=== PATIENT | male | born 1955 | race Caucasian/White ===

== ENCOUNTER 2021-05-30 05:34 | Observation (INO) ==
--- NOTE | 2021-05-07 12:02 | PAT Medication Instructions ---
Medication Instructions Date of Service May 07, 2021 Home Medications ascorbic acid (vitamin C) 500 mg tablet (Vitamin C) 500 mg PO HS aspirin 81 mg tablet,delayed release 81 mg PO HS benazepril 20 mg-hydrochlorothiazide 25 mg tablet 1 tab PO HS cholecalciferol (vitamin D3) 25 mcg (1,000 unit) tablet (Vitamin D3) 1,000 unit PO HS sertraline 50 mg tablet 50 mg PO HS amlodipine 5 mg tablet 10 mg PO HS atorvastatin 20 mg tablet 20 mg PO HS lorazepam 0.5 mg tablet 0.5 mg PO DAILY PRN metformin 500 mg tablet 500 mg PO HS esomeprazole magnesium 20 mg capsule,delayed release (Nexium) 20 mg PO HS potassium chloride 10 mEq capsule,extended release 20 meq PO HS ASK your prescriber and surgeon aspirin 81 mg tablet,delayed release 81 mg PO HS Take morning of surgery With a small sip of water, OTHERWISE NOTHING TO EAT OR DRINK AFTER MIDNIGHT: lorazepam 0.5 mg tablet 0.5 mg PO DAILY PRN(if needed) Take evening before surgery ascorbic acid (vitamin C) 500 mg tablet (Vitamin C) 500 mg PO HS benazepril 20 mg-hydrochlorothiazide 25 mg tablet 1 tab PO HS cholecalciferol (vitamin D3) 25 mcg (1,000 unit) tablet (Vitamin D3) 1,000 unit PO HS sertraline 50 mg tablet 50 mg PO HS amlodipine 5 mg tablet 10 mg PO HS atorvastatin 20 mg tablet 20 mg PO HS metformin 500 mg tablet 500 mg PO HS esomeprazole magnesium 20 mg capsule,delayed release (Nexium) 20 mg PO HS potassium chloride 10 mEq capsule,extended release 20 meq PO HS Other Notes If you have any questions please call us at [phone] or [phone] or [phone] or [phone]
--- NOTE | 2021-05-23 14:27 | Anesthesiology Consultation ---
Date of Service May 23, 2021 Assessment & Plan (1) Encounter for pre-operative examination: Chart Review Chart Review: Acceptable Risk for Surgery (pending preop Covid testing and BSG DOS ) and Patient seen in Pre Admission Testing -Discussed glucose with Dr. Maya- due to nature of procedure- patient can proceed as scheduled- most likely will need insulin while admitted. - Check BSG AM DOS Per PAT appt on 05/23/21, patient denies any recent travel or large group activities. No known Covid positive exposures or Covid related symptoms. No known Covid infection in the past 90 days. Pt is fully vaccinated for Covid. Pre op Covid testing scheduled 05/28/21 = will await results. Educated on importance of self quarantining, social distancing and wearing mask in public for the patient one week prior to surgery and after Covid testing done Pt last seen by cardio 04/16/21= history of chest pain- resolved. Nuclear stress test 12/2020 WNL. Able to achieve 4 mets without any difficulty. HTN- controlled. Dyslipidemia- hx of DM- Lipitor increased. Did order Holtor monitor to assess PVC burden (PVCs noted on EKG in office). Follow up in one year. Teaching & Discussion Pre-Anesthesia Teaching/Discussion Notes: Instructed NPO after midnight before surgery,except medications with 15 cc of water. Medication instructions provided according to the PAT guidelines. History Surgery Operation Date: 05/30/21 07:30 Proposed Procedures p Laparoscopic Robotic Assisted Radical Retropubic Prostatectomy, Possible Open, Possible Pelvic Lymph Node Dissection, Possible Suprapubic Tube Placement - Waldemar Garcia MD Height/Weight Height: 6 ft 6 in Weight: 119.5 kg Allergies Allergy/AdvReac Type Severity Reaction Status Date / Time morphine Allergy Mild severe Verified 05/17/21 10:26 vomiting Medications Home Medications Medication Instructions Recorded Confirmed Last Taken ascorbic acid (vitamin C) 500 mg 500 mg PO HS 10/25/19 05/17/21 11/01/19 tablet (Vitamin C) aspirin 81 mg tablet,delayed 81 mg PO HS 10/25/19 05/17/21 11/01/19 release benazepril 20 1 tab PO HS 10/25/19 05/17/21 11/01/19 mg-hydrochlorothiazide 25 mg tablet cholecalciferol (vitamin D3) 25 1,000 unit PO HS 10/25/19 05/17/21 11/01/19 mcg (1,000 unit) tablet (Vitamin D3) sertraline 50 mg tablet 50 mg PO HS 10/25/19 05/17/21 Unknown amlodipine 5 mg tablet 10 mg PO HS tab 02/14/21 05/17/21 Unknown atorvastatin 20 mg tablet 20 mg PO HS 02/14/21 05/17/21 Unknown lorazepam 0.5 mg tablet 0.5 mg PO DAILY PRN 02/14/21 05/17/21 Unknown metformin 500 mg tablet 500 mg PO HS 02/14/21 05/17/21 Unknown esomeprazole magnesium 20 mg 20 mg PO HS 04/10/21 05/17/21 Unknown capsule,delayed release (Nexium) potassium chloride 10 mEq 20 meq PO HS cap 04/18/21 05/17/21 Unknown capsule,extended release Past Medical History Medical History (Updated 05/24/21 @ 14:28 by Iraida Ahmadi PA-C) Cardiomyopathy Follows with Dr. Simpson in [place] Carotid stenosis <50% stenosis bilaterally per 04/2021 cardio note (cardio doppler from 04/2021 not available) Chronic gastritis controlled with Nexium CKD (chronic kidney disease) Depression Diabetes Recently dx'ed - does not check BSGs Hgb A1C 9.8 (due to prostate cancer - surgeon wants to proceed with case)- FYI note sent to PCP to follow up with patient Dyslipidemia GERD (gastroesophageal reflux disease) Well controlled and stable History of COVID-28 December 2020 > sinus issues > not hospitalized - no current symptoms History of visual impairment Right eye d/t optic neuropathy Hypertension Prostate cancer Exercise / Class Metabolic Activity II 4-5 Yardwork/Stairs/Walk up hill (one flight of stairs - no chest pain or SOB ) Past Family History Family History Grandfather (Paternal) , Passed in late 60's of Leukemia No problems noted. Father , Passed age 42 of cardiac/colon cancer No problems noted. Mother , Passed age 94 of natural causes No problems noted. Brother Breast cancer Mastectomy Sister No problems noted. Sister Breast cancer Son No problems noted. Son No problems noted. Other No family history of adverse response to anesthesia Past Surgical History Surgical History History of arthroscopy of left knee meniscus repair x2 History of arthroscopy of right knee meniscus repair History of bilateral cataract extraction History of cardiac cath 2004? @ [place], no stents History of carpal tunnel surgery of right wrist History of cholecystectomy History of colonoscopy with polypectomy History of esophagogastroduodenoscopy (EGD) History of lumbar surgery denervation of lower back History of Shana fundoplication History of repair of left rotator cuff History of toe surgery right big toe--no hardware History of tonsillectomy History of tooth extraction partial upper denture History of wisdom tooth extraction Past Anesthesia History No Hx of Anesthesia Complications (with exception to colonoscopy - had awareness ) and No Family Hx of Anesthesia Complications History of PONV No Hx of PONV and No Hx of Motion Sickness Social History Smoking Status: Never smoker Do You Dip or Chew Tobacco: No Hx Alcohol Use: Yes Alcohol type: beer alcohol intake frequency: holidays/special occasions only Hx Substance Use: No substance use type: does not use Review of Systems Hx of snoring- witnessed apnea in the past - no hx of sleep study Patient denies chest pain, shortness of breath, dyspnea on exertion, cough, wheezing, palpitations. No hx of seizures, stroke, MO. No hx of blood clots or blood transfusions Physical Exam Vital Signs VITALS BP 119/77 P 72 TEMP 97.7 SP02 95% RESP 16 Constitutional no acute distress ENMT Mouth: no TMJ clicking Thyromental Distance: < 3.5 Finger Breadths (3.0) Mallampati Class: I Top partial plate Missing bottom molars Neck neck extension not limited Respiratory normal respiratory effort; no respiratory distress Auscultation: lungs clear to auscultation bilaterally; no wheezes Cardiovascular Rate/Rhythm: regular rate and regular rhythm Heart Sounds: no murmur Vessels: no carotid bruit Musculoskeletal Spine: no pain with cervical ROM Extremities: extremities normal to inspection Psychiatric Orientation: alert Lab Results Anesthesia Preop Results Results Anesthesia Widget: WBC 6.30 K/uL (4.8-10.8) 05/23/21 Hgb 14.8 g/dL (14.0-18.0) 05/23/21 Hct 43.5 % (42-52) 05/23/21 Plt 229 K/uL (130-400) 05/23/21 Na 138 mmol/L (136-145) 05/23/21 K 3.8 mmol/L (3.5-5.1) 05/23/21 Cl 103 mmol/L (98-107) 05/23/21 CO2 29 mmol/L (21-32) 05/23/21 BUN 13 mg/dl (6-23) 05/23/21 Creat 1.10 mg/dl (0.6-1.4) 05/23/21 Glucose Level 307 mg/dl (70-99) H* 05/23/21 HA1c 9.8 % (4.5-5.6) H 05/23/21 Urine Color Yellow 05/23/21 Urine Appearance Clear (Clear) 05/23/21 Urine pH 5.0 (4.5-7.5) 05/23/21 Urine Specific [place] 1.022 (1.000-1.030) 05/23/21 Urine Protein Negative (Negative) 05/23/21 Urine Glucose (UA) 3+ (Negative) H 05/23/21 Urine Ketones Negative (Negative) 05/23/21 Urine Blood Negative (Negative) 05/23/21 Urine Nitrite Negative (Negative) 05/23/21 Urine Bilirubin Negative (Negative) 05/23/21 Urine Urobilinogen Negative (Negative) 05/23/21 Urine Leukocyte Esterase Negative (Negative) 05/23/21 Blood Type O Positive 05/23/21 Antibody Screen NEGATIVE 05/23/21 Lab Comments: Surgeon's office made aware of glucose- Dr. Garcia would still like to proceed (FYI note sent to PCP recommending follow up post op with patient for additional meds and blood testing supplies) Testing Electrocardiogram Date: 05/23/21 SR with marked sinus arrhythmia at 61bpm RBBB Chest X-Ray Date: 12/16/20 Findings: + NAD Likely focal enlargement of the left atrium. Echocardiogram Date: 04/16/21 EF: 55-60% LV Function: normal Other Findings: + LVH (borderline ) and + diastolic dysfunction (Grade I ) LA mildly enlarged Mild AR. Mild TR. Mild MO. The ascending aorta is dilated at 4cm. Stress Test Date: 01/09/21 Type: nuclear EKG response negative. The SPECT perfusion images are considered to be within normal limits. No significant ischemia or infarction noted. Normal LV wall motion. Relatively low probability of CAD, ischemia. Low risk study. Other Testing Holter monitor 04/24/2021 to 04/25/21 = normal Holter recording, 5377 PVCs. Primary rhythm was sinus rhythm, average heart rate was 76 bpm. Minimum HR was 51 bpm and maximum HR was 97 bpm. No atrial fibrillation or flutter noted. No SVT noted. No pauses or AV blocks. PVC burden was 4.88%.
[2021-05-30] MEDS ORDERED: LR 15ML/HR IV SCH (06:00)
[2021-05-30] MEDS ORDERED: ceFAZolin 2000MG 2,000 MG/15 ML SYR IV SCH (06:00)
--- NOTE | 2021-05-30 06:45 | History & Physical Bridge Note ---
Date of Service May 30, 2021 History & Physical Bridge Note I have examined the patient, reviewed the History & Physical and in the interval since the performance of the History & Physical I have noted the following changes of clinical significance: no changes noted
[2021-05-30] MEDS ORDERED: BUPIVACAINE 0.5 % 5 MG/1 ML MPF 30ML VIAL ONE (07:01)
[2021-05-30] MEDS ORDERED: LIDOCAINE 2% 2 ML VIAL/AMP(20MG/ML) INFIL ONE (07:07)
[2021-05-30] MEDS ORDERED: DEXAMETHASONE SOD INJ 4 MG/ML VIAL ONE (07:07)
[2021-05-30] MEDS ORDERED: GLYCOPYRROLATE 0.2 MG/ML VIAL ONE ×2 (07:07→08:18)
[2021-05-30] MEDS ORDERED: ONDANSETRON INJ 2 MG/ML 2 ML VIAL ONE ×2 (07:07→07:08)
[2021-05-30] MEDS ORDERED: PROPOFOL IV EMULSION 10 MG/ML 20 ML VIAL IV ONE (07:07)
[2021-05-30] MEDS ORDERED: NEOSTIGMINE METHYLSULFATE 1 MG/ML 10ML VIAL ONE (07:07)
[2021-05-30] MEDS ORDERED: MIDAZOLAM HCL 1 MG/ML 2ML VIAL ONE (07:08)
[2021-05-30] MEDS ORDERED: fentaNYL citrate 100 MCG/2 ML VIAL ONE (07:08)
[2021-05-30] MEDS ORDERED: LARYING-O-JET KIT (LTA) ONE (07:12)
[2021-05-30] MEDS ORDERED: ROCURONIUM BROMIDE 10 MG/ML 5 ML VIAL IV ONE ×2 (07:12→10:26)
[2021-05-30] MEDS ORDERED: ATROPINE SULFATE 0.1 MG/ML 10ML SYR IV PRN (07:18)
[2021-05-30] MEDS ORDERED: ONDANSETRON INJ 2 MG/ML 2 ML VIAL IV PRN ×2 (07:18→14:54)
[2021-05-30] MEDS ORDERED: KETOROLAC 30 MG/ML VIAL IV PRN (07:18)
[2021-05-30] MEDS ORDERED: PROMETHAZINE HCL 12.5 MG in SODIUM CHLORIDE 0.9% 50 ML IV PRN (07:18)
[2021-05-30] MEDS ORDERED: HYDROmorphone INJ 1 MG/ML SYRINGE IV PRN (07:18)
[2021-05-30] MEDS ORDERED: BELLADONNA/OPIUM SUPP 60 MG SUPP PR ONE ×2 (08:00→09:02)
[2021-05-30] MEDS ORDERED: ePHEDrine sulfate 50 MG/ML SYR ONE (08:18)
[2021-05-30] MEDS ORDERED: HYDROmorphone INJ 2 MG/ML SYR/VIAL ONE (09:52)
--- NOTE | 2021-05-30 14:10 | Operative Report ---
PG Post Operative Report Pre & Post Diagnosis Operation Date: 05/30/21 07:30 Pre-Op Diagnosis: Prostate Cancer Post-Op Diagnosis: Prostate Cancer I identified the patient and participated in the time-out.: Yes Procedure Operation Date: 05/30/21 07:30 Actual Procedures p Laparoscopic Robotic Assisted Radical Retropubic Prostatectomy, Bilateral Pelvic Lymph Node Dissection(Not Applicable) - Waldemar Garcia MD Surgeon Waldemar Garcia MD Fabricator Artificial Breast LINDSEY Mao-P Estimated Blood Loss 350 Findings Consistent with Post-Op Diagnosis Specimens Fat over prostate Prostate, vas deferens and seminal vesicals Left pelvic lymph nodes Right pelvic lymph nodes Drains Munoz catheter per urethra, 10 mL in balloon. Anesthesia Type General Complications none Disposition Accompanied Patient To Recovery: No Disposition: Recovery Room Indications This is a 65 yo male recently diagnosed with prostate cancer. After thorough discussion of treatment options and risks and benefits of surgery, he presents to the OR today for robot-assisted radical prostatectomy. Patient specific considerations include [place] 3+4 disease on the right side, with possible ductal variant. We will plan for non-nerve sparing on the right side. Description of Procedure The patient was identified in the preoperative holding area and informed consent was confirmed. He was then brought to the operating room where general anesthesia was initiated. He was placed supine on the operating room table with all pressure points appropriately padded. His abdomen and genitalia were prepped and draped in the usual sterile fashion and a timeout was performed. A 2 cm incision was made above the umbilicus and then a Veress needle was used to obtain access to the abdomen. Proper position was confirmed with the drop test and low initial insufflation pressure. The abdomen was insufflated with CO2 to a pressure of 12 mmHg. An 8 mm robotic port was placed in the incision and the robotic camera was inserted. The abdominal cavity was surveyed, demonstrating bilateral fat-containing inguinal hernias. There were some sigmoid adhesions as well. The remaining robotic ports were placed under direct visualization, with 2 8mm robotic ports on the left side and 1 robotic port on the right. A 12 mm dietary assistant port was placed on the right side as well, and a 5 mm dietary assistant port was placed in the right upper quadrant. The table was adjusted to 26 degrees of Trendelenberg. The robot was then docked. Sigmoid adhesions were sharply divided to allow access to the pelvis. Using electrocautery, the bladder was then dropped from the anterior wall of the abdomen, exposing the space of Retzius. This dissection was carried down to expose the pelvic brim and subsequently the anterior surface of the prostate and the endopelvic fascia. The fat overlying the anterior of the prostate was removed and sent for pathologic analysis, labeled as 'fat over prostate'. The endopelvic fascia was then divided on each side to expose the lateral aspects of the prostate and the lateral aspects of the pedicles. A 3-0 V-Loc suture was used to ligate the dorsal venous complex to prevent backbleeding in subsequent steps. The fourth arm of the robot was then used to put some gentle traction on the bladder, and the bladder neck was identified. Using electrocautery, the anterior bladder neck was dissected to expose the Munoz catheter, whose tip was removed from the bladder and held anteriorly. The posterior bladder neck dissection was then completed. At this point bilateral vas deferens were exposed and isolated. The vas deferens were cauterized and then divided. Bilateral seminal vesicles were dissected out as well. Denonvilliers fascia was then divided and the posterior prostate dissection was carried up as far as possible toward the urethra. The pedicles were then divided using combination of clips and sharp dissection, trying to use minimal electrocautery. On the right side a non-nerve sparing approach was used. On the left side nerve sparing approach was used. Attention was turned anteriorly and the dorsal venous complex was divided using sharp dissection and electrocautery. The urethra was isolated and then divided sharply. At this point, the prostate was free and was placed in a specimen bag. Bilateral pelvic lymph node dissection was then performed, and the radha tissue was sent for pathologic analysis, separately labeled as left and right pelvic lymph nodes. The pelvis was inspected and meticulous hemostasis was ensured using point cautery and [id number] 4-0 monocryl sutures. Double-armed V-Loc suture was then used to re-anastomose the bladder neck with the urethra. Once this was c omplete, the anastomosis was tested by instilling 120 mL of normal saline into the bladder. Satisfied that the anastomosis was watertight, the catheter balloon was inflated with 10 mL of normal saline. The robot was then undocked. The supraumbilical incision was extended and the prostate was extracted. 0 Vicryl suture was then used to close the fascia at this incision. All skin incisions were closed with 4-0 Monocryl suture and then a layer of Dermabond was applied. The patient was then awakened from anesthesia and was brought to the PACU in stable condition. I attest to the content of the Intraoperative Record and any orders documented therein. Any exceptions are noted below.
[2021-05-30] MEDS ORDERED: PROMETHAZINE HCL INJ 25 MG/ML 1 ML VIAL ONE (14:19)
[2021-05-30] MEDS ORDERED: SODIUM CHLORIDE 0.9% 50 ML BAG ONE (14:19)
--- NOTE | 2021-05-30 14:24 | Anesthesiology Progress Note ---
Date of Service May 30, 2021 Anesthesia Post Procedure Vital Signs Vital Signs: Temp Pulse Pulse Resp BP Pulse Ox 05/30/21 14:15 85 12 129/78 94 05/30/21 14:05 86 18 130/75 94 05/30/21 13:55 84 18 133/78 97 05/30/21 13:47 36.5 C 84 12 138/80 95 05/30/21 06:04 36.8 C 76 20 126/93 98 Transfer of Care Handoff Completed per policy Notes Mental Status: alert / awake / arousable Patient Amnestic to Procedure: Yes Nausea / Vomiting: adequately controlled Pain: adequately controlled Airway Patency, RR, SpO2: stable & adequate BP & HR: stable & adequate Hydration State: stable & adequate Anesthetic Complications: no major complications apparent
[2021-05-30] MEDS ORDERED: HYDROmorphone INJ 0.5 MG/0.5 ML SYR IV PRN (14:54)
[2021-05-30] MEDS ORDERED: PHARMACY GLYCEMIC MGMT CONSULT PRN (14:54)
[2021-05-30] MEDS ORDERED: ACETAMINOPHEN 325 MG TAB PO PRN (14:54)
[2021-05-30] MEDS ORDERED: oxyCODONE HCL IR 5 MG TAB (IMMEDIATE RELEASE) PO PRN (14:54)
[2021-05-30] MEDS ORDERED: LORazepam 0.5 MG TAB PO PRN (14:54)
[2021-05-30] MEDS: LACTATED RINGER'S 1,000 ML IV SCH (15:26)
--- NOTE | 2021-05-30 15:33 | Pharmacy Report ---
Pharmacy Glycemic Short Note 2 - Date of Service May 30, 2021 - Glycemic Short BSG Results (Last 24 hours): 05/30/21 05/30/21 05:58 14:07 POC Glucose 147 H 155 H OUTPATIENT ANTIDIABETIC REGIMEN: * EMPAGLIFLOZIN 10 MG DAILY * METFORMIN 500 MG HS * A1C 9.8% 05/23/21 ASSESSMENT: * Patient admitted following prostatectomy, POD#0, ordered type 2 DM diet * Will begin weight based stress of 2 novolog and put in sliding scale with dinner for lantus up to full weight based stress of 1 * Monitor BSG trend for additional changes PLAN FOR INPATIENT GLYCEMIC CONTROL: * Hold outpatient oral diabetes medications * Basal insulin * Lantus 0-20 units x1 * Bolus insulin * NovoLog per scale ACHS or Q6hrs while NPO * Goal Range: Low 110 mg/dL - High 140 mg/dL * Correction Factor: 20 mg/dL/unit * Nutritional / Prandial insulin per carb ratio of 1 unit per 7 grams CHO consumed
[2021-05-30] MEDS: ceFAZolin 2000MG 2,000 MG/15 ML SYR IV SCH (16:13)
[2021-05-30] MEDS ORDERED: INSULIN GLARGINE SOLOSTAR 100 UNITS/ML 3 ML PEN SC ONE (16:30)
[2021-05-30] MEDS: INSULIN ASPART PER UNIT SC SCH ×2 (17:57→20:48)
[2021-05-30] MEDS: HEPARIN SOD 5,000 UNIT/0.5 ML VIAL SQ SCH (20:35)
[2021-05-30] MEDS: oxyCODONE HCL IR 5 MG TAB (IMMEDIATE RELEASE) PO PRN (20:35)
[2021-05-30] MEDS ORDERED: hydroCHLOROthiazide 25 MG TAB PO SCH (21:00)
[2021-05-30] MEDS ORDERED: ENALAPRIL MALEATE 10 MG TAB PO SCH (21:00)
[2021-05-30] MEDS ORDERED: PANTOprazole 40 MG TAB PO SCH (21:00)
[2021-05-30] MEDS ORDERED: SERTRALINE HCL 50 MG TABLET PO SCH (21:00)
[2021-05-30] MEDS ORDERED: POTASSIUM CHLORIDE CRTAB 20 MEQ TABCR PO SCH (21:00)
[2021-05-30] MEDS ORDERED: amLODIPine BESYLATE 5 MG TAB PO SCH (21:00)
[2021-05-30] MEDS ORDERED: ATORVASTATIN 20 MG TAB PO SCH (21:00)
[2021-05-31] MEDS: LACTATED RINGER'S 1,000 ML IV SCH (00:02)
[2021-05-31] MEDS: ceFAZolin 2000MG 2,000 MG/15 ML SYR IV SCH (00:02)
[2021-05-31] MEDS: oxyCODONE HCL IR 5 MG TAB (IMMEDIATE RELEASE) PO PRN ×2 (05:49→12:28)
[2021-05-31 08:03] LABS: Basophils # (auto) 0.02 K/uL (0-0.2); Basophils % (auto) 0.3 %; Eosinophils # (auto) 0.09 K/uL (0-0.5); Eosinophils % (auto) 1.2 %; Hematocrit (blood only) 38.7 % (42-52); Hemoglobin 12.6 g/dL (14.0-18.0); Immature Granulocytes # (auto) 0.02 K/uL (0.00-0.02); Immature Granulocytes % (auto) 0.3 %; Lymphocytes # (auto) 1.79 K/uL (1.2-3.4); Lymphocytes % (auto) 22.9 %; Mean Corpuscular Hgb Conc 32.6 g/dL (32-36); Mean Corpuscular Volume 95.3 fL (80-100); Monocytes # (auto) 0.69 K/uL (0.11-0.59); Monocytes % (auto) 8.8 %; Neutrophils # (auto) 5.21 K/uL (1.4-6.5); Neutrophils % (auto) 66.5 %; Platelet Count 192 K/uL (130-400); RDW Coefficient of Variation 12.7 % (11.5-14.5); RDW Standard Deviation 44.6 fL (36.4-46.3); Red Blood Count 4.06 M/uL (4.7-6.1); White Blood Count 7.82 K/uL (4.8-10.8)
[2021-05-31 08:34] LABS: BUN Creatinine Ratio 11.9 (10-20); Calcium 7.6 mg/dl (8.5-10.1); Creatinine Clr Calc Pharmacy 101.6 ml/min; Est GFR (African American) 88.8 ml/min; Est GFR (Non-African American) 76.6 ml/min; Potassium 3.3 mmol/L (3.5-5.1)
[2021-05-31] MEDS: INSULIN ASPART PER UNIT SC SCH ×2 (08:42→12:27)
--- NOTE | 2021-05-31 08:42 | Urology Progress Note ---
Date of Service May 31, 2021 Assessment & Plan (1) Prostate cancer: Plan: Postop day 1 from robot-assisted radical prostatectomy and bilateral pelvic lymphadenectomy. He is doing well overall, ready to have breakfast this morning and ambulate, then should be appropriate for discharge home. We we will plan for Munoz catheter removal in approximately 1 week in the urology office, then 3-month follow-up with PSA prior. I will call him with pathology results. Admission and Anticipated Discharge Date Admission Date: May 30, 2021 Subjective Patient is feeling well, no fevers or chills, no nausea or vomiting Has been tolerating some liquids and crackers so far, for breakfast this morning Has not been up and ambulating yet, but ready to do so today Denies significant abdominal pain No issues with Munoz catheter overnight Review of Systems Constitutional: No fevers chills Gastrointestinal: No nausea or vomiting Physical Exam Physical Exam: Well-appearing, NAD Respiratory: Breathing comfortably on room air, no audible wheezing. Gastrointestinal (Abdomen): Soft, appropriately tender, nondistended. Incision sites well approximated with Dermabond intact. Genitourinary: Munoz catheter in place draining pink-tinged urine Results & Data ([facility]) Vital Signs (Past 12 Hours) Vital Signs Temp Pulse Resp BP BP Pulse Ox 05/31/21 08:03 36.7 C 67 16 114/66 94 05/31/21 04:00 36.6 C 66 18 104/66 97 05/30/21 22:55 36.8 C 84 16 110/65 97 PG Care Time/CCT Total # of Minutes Spent Total Time Spent with Patient: Total time spent is greater than 50% in coordination of care (as documented) at patient's floor/unit and/or counseling patient: Coding Level of Care Code None Diagnoses Prostate cancer C61
[2021-05-31] MEDS: HEPARIN SOD 5,000 UNIT/0.5 ML VIAL SQ SCH (08:43)
[2021-05-31] MEDS ORDERED: INSULIN GLARGINE SOLOSTAR 100 UNITS/ML 3 ML PEN SC ONE (13:00)
--- NOTE | 2021-05-31 15:01 | Discharge Summary ---
Date of Service May 31, 2021 Admission HPI Per Admitting Provider 65yo M admitted status post Laparoscopic Robotic Assisted Radical Retropubic Prostatectomy, Bilateral Pelvic Lymph Node Dissection with Dr. Garcia. Admission Exam Per Admitting Provider Constitutional well developed and well nourished; no acute distress Eyes + anicteric sclerae; pupils not irregular Respiratory normal respiratory effort; no respiratory distress, does not use accessory muscles and no cough Cardiovascular well perfused Gastrointestinal (Abdomen) Inspection/Auscultation: abdomen normal to inspection; abdomen not distended Musculoskeletal Extremities: extremities normal to inspection Skin normal turgor; no rashes and no lesions Neurologic moves all extremities and awake Psychiatric Orientation: alert and oriented x 3 Principal Diagnosis Prostate Cancer Discharge Exam Physical Exam: Well-appearing, NAD Respiratory: Breathing comfortably on room air, no audible wheezing. Gastrointestinal (Abdomen): Soft, appropriately tender, nondistended. Incision sites well approximated with Dermabond intact. Genitourinary: Self catheter in place draining pink-tinged urine Discharge Data Allergies Allergy/AdvReac Type Severity Reaction Status Date / Time morphine Allergy Mild severe Verified 05/30/21 06:09 vomiting Procedures Performed Operation Date: 05/30/21 07:30 Actual Procedures p Laparoscopic Robotic Assisted Radical Retropubic Prostatectomy, Bilateral Pelvic Lymph Node Dissection(Not Applicable) - Waldemar Garcia MD Hospital Course (1) Prostate cancer: - Pt POD#1 s/p Laparoscopic Robotic Assisted Radical Retropubic Prostatectomy, Bilateral Pelvic Lymph Node Dissection with Dr. Garcia. - Patient doing well post procedure, progressing as expected. - Afebrile, labs stable. - Tolerating diet. - Ambulating without issue. - Minimal pain. - Self catheter intact, draining pink tinged urine. Pt tolerating catheter well. - Pt ready for discharge. - Expected clinical course discussed with patient including discharge instructions. All questions answered. - Will arrange postoperative follow-up appointments with urology service. - Stable for discharge today, home with Self catheter. Total Time Total Time Spent Total Time Spent (In Minutes): 15 Discharge Plan Discharge Items Patient Disposition: Home - Self-Care Reason For Visit: Prostate Cancer Discharge Diagnosis: Prostate cancer Activity: Per Instructions section Lifting: No more than 10 pounds Bathing Comment: OK to shower. No tub baths or soaks. Sexual Activity: Wait until after follow-up appointment Exercise/Sports: Wait until after follow-up appointment Driving/Machine Use: Do not drive while taking prescription pain medication. Non-emergency contact: Urologist Call non-emergency contact if: your pain is not controlled, your temperature is above 101, your wound has increased redness, your wound has increased drainage and your wound pain has increased Follow-up/Referrals: Waldemar Garcia MD [Physician] - 06/07/21 11:00 am (APPOINTMENT WITH NURSE FOR CATH REMOVAL) Gil Pemberton DO [Primary Care Provider] - Diet: Regular Addtl Attending Provider Instructions: The surgery you had was: Robot-assisted radical prostatectomy with bilateral pelvic lymph node dissection. Please take all medications as prescribed and keep all follow-ups as scheduled. Please call our office at [phone] with any questions, concerns or need to reschedule appointments for any reason. We are happy to assist you Medications: Please take all medications as prescribed. For pain control, you can take tylenol every 6 hours. You can also take ibuprofen every 6 hours. If you have been prescribed a narcotic pain medication, please take this according to the instructions on the label. If you have been prescribed a narcotic pain medication, you should also take a stool softener such as Colace or MiraLAX You have been prescribed a single dose of antibiotics (Ciprofloxacin) to be taken 1 hour prior to your appointment for self catheter removal Activity: We recommend having someone with you for the first few days after surgery to help care for you. For the first 2 weeks after surgery, we would like you to get up and walk around your house. However, we recommend limit physical activity that would increase your heart rate. This will allow your body to rest and heal. Take naps if you feel tired. Don't lift anything heavier than 10 pounds, mow the law or ride a bicycle until your follow-up appointment. Please avoid long car rides. Home Care: Unless directed otherwise, drink 6 to 8 glasses of water a day (enough to keep your urine light colored). This will also help keep a healthy flow of urine. We recommend using a stool softener such as colace or miralax for the first two weeks to avoid constipation. Self Catheter or Suprapubic Catheter care: Keep the catheter well secured with either a leg back or leg strap with large bag. Empty your bag when it's about half full. You may notice some blood in the bag. This is normal after surgery and while the catheter is in place. Use mild soap (such as Dove or Dial) and water to wash the catheter and the head of your penis daily, or more frequently if needed. Return to your normal diet, we encourage good protein intake to promote healing. You may shower as normal. Please avoid tub baths or soaking until catheter removed and incisions well healed. Wearing sweat pants while you have the catheter is recommended, they will be more comfortable. Follow-up We will have you come to the office in approximately 7 days for catheter removal. - Please remember to take your dose on antibiotics 1 hour prior to this appointment. We will call you with the pathology results once they are available. We will schedule an office visit in approximately 3 months with PSA prior. Your final pathology report will be discussed at your physician follow-up appointment. Call [facility] at [phone] right away if you have any of the following: Chest pain or trouble breathing (call 196 or go to the hospital) Fever of 101F or higher, uncontrolled vomiting Heavy bleeding, clots, or bright red blood from the catheter Catheter that falls out or stops draining Foul-smelling discharge from your catheter Redness, swelling, warmth, or increased pain at your incision site Drainage, pus, or bleeding from your incision Pending Studies at Discharge: No Stand-Alone Forms: My [facility], Opioid Pain Management Medications and DC Order Prescriptions: New ciprofloxacin HCl [Cipro] 500 mg tablet 500 mg PO ONCE Qty: 1 RF: 0 oxycodone 5 mg tablet 5 mg PO Q8H PRN (Reason: pain) Qty: 6 RF: 0 Continued metformin 500 mg tablet 500 mg PO HS RF: 0 atorvastatin 20 mg tablet 20 mg PO HS RF: 0 lorazepam 0.5 mg tablet 0.5 mg PO DAILY PRN (Reason: Anxiety) RF: 0 potassium chloride 10 mEq capsule, extended release 20 meq PO HS RF: 0 esomeprazole magnesium [Nexium] 20 mg capsule,delayed release(DR/EC) 20 mg PO HS RF: 0 benazepril-hydrochlorothiazide 20-25 mg Tablet 1 tab PO HS RF: 0 sertraline 50 mg Tablet 50 mg PO HS RF: 0 aspirin 81 mg Tablet,Delayed Release (Dr/Ec) 81 mg PO HS RF: 0 ascorbic acid (vitamin C) [Vitamin C] 500 mg Tablet 500 mg PO HS RF: 0 cholecalciferol (vitamin D3) [Vitamin D3] 25 mcg (1,000 unit) Tablet 1,000 unit PO HS RF: 0 amlodipine 5 mg tablet 10 mg PO HS RF: 0 Jardiance 10 mg Tablet 10 mg PO DAILY RF: 0 Discharge Orders: Discharge Order (Routine); Ordered 05/31/21 Ordered By: Ayla Dove/Other Patient Handouts: Emptying and Cleaning Your ..., Indwelling Urinary Catheter Dc, Leg Bag Care Dc Admission Data Admit Date/Time: 05/30/21 06:48 Attending Provider: Waldemar Garcia Admit Provider: Waldemar Garcia Primary Care Provider: Gil Pemberton Other Interventions: Discharge Summary Assessment (RN) Last Done: 05/31/21 10:27 Coding Level of Care Code D/C DAY MANAGEMENT <30 MINS Diagnoses Prostate cancer C61
== END 2021-05-31 13:47 | disposition home or self-care (01) ==
LOC: ASU 05:34 → 3N 06:48 → INTOOBSV 06:48